=== PATIENT | female | born 1965 | race Native Hawaiian/Other Pacific Islander ===

== ENCOUNTER 2020-04-15 14:10 | Inpatient (IN) | payer OTHER ==
[~2020-04-15] VITALS: Ht 152.4 cm; Wt 126.4 kg
[~2020-04-15 14:10] MED LIST: ASA LOW DOSE81 MG PO; CETI10TA PO; INVOKANA100 MG OR; LISI20TA24 PO; METF500T PO; PANT40TA PO
[2020-04-15] MEDS ORDERED: ZITHROMAX500 MG PO (17:15)
[2020-04-15] MEDS ORDERED: PEPCID40 MG PO (17:16)
[2020-04-15] MEDS ORDERED: PREDNISONE10 M1 PO (17:17)
[2020-04-15 17:18] VITALS: BP 155/77; TEMP 99.1; Ht 152.4 cm; Wt 126.4 kg
[2020-04-15 17:24] LABS: PLATELET COUNT 237 K/uL (152-353)
[2020-04-15 17:43] LABS: POTASSIUM 4.1 mmol/L (3.6-5.2)
[2020-04-15 20:00] VITALS: BP 131/71; TEMP 98.6
[2020-04-16 00:07] VITALS: BP 133/81; TEMP 98
[2020-04-16 04:00] VITALS: BP 134/82; TEMP 97.9
[2020-04-16 08:00] VITALS: BP 136/68; TEMP 97.9
[2020-04-16 12:00] VITALS: BP 175/86; TEMP 98.2
[2020-04-16 12:05] LABS: PLATELET COUNT 205 K/uL (152-353)
[2020-04-16 12:12] LABS: POTASSIUM 3.6 mmol/L (3.6-5.2)
[2020-04-16 16:00] VITALS: BP 156/71; TEMP 97.4
[2020-04-16 20:00] VITALS: BP 146/89; TEMP 98.1
[2020-04-17] VITALS (7 sets, daily range): BP systolic 121–148; BP diastolic 61–91; TEMP 97.5–98.8
[2020-04-17 05:25] LABS: PLATELET COUNT 232 K/uL (152-353)
[2020-04-17 05:58] LABS: POTASSIUM 4.7 mmol/L (3.6-5.2)
[2020-04-18 04:00] VITALS: BP 127/71; TEMP 98.5
[2020-04-18 05:44] LABS: PLATELET COUNT 259 K/uL (152-353)
[2020-04-18 06:06] LABS: POTASSIUM 4.4 mmol/L (3.6-5.2)
[2020-04-18 08:00] VITALS: BP 155/86; TEMP 97.7
[2020-04-18 12:00] VITALS: BP 164/76; TEMP 97.8
== END 2020-04-18 14:40 | disposition home or self-care (01) | DRG 177 ==
LOC: MED/SURG 14:10
PROVIDERS: ADMIT Family Medicine
DX: U07.1 COVID-19 (principal); J18.8 Other pneumonia, unspecified organism; J44.1 Chronic obstructive pulmonary disease with (acute) exacerbation; E46 Unspecified protein-calorie malnutrition; I10 Essential (primary) hypertension; E11.9 Type 2 diabetes mellitus without complications; E86.0 Dehydration; E66.01 Morbid (severe) obesity due to excess calories; R06.09 Other forms of dyspnea; R09.02 Hypoxemia
CPT/HCPCS: 36415; 80053; 82728; 83036; 83735; 84100; 85027; 85379; 86140; 87040; 87635; 93005; 94667; 94668; 94760; J0456; J0696; J1100; J1650; J1885; U0003

== ENCOUNTER 2020-07-03 10:17 | Observation (INO) | payer OTHER ==
[2020-07-03] VITALS (12 sets, daily range): BP systolic 102–146; BP diastolic 58–84; TEMP 97.7–98; Ht 152.4 cm; Wt 126.4 kg
[~2020-07-03] VITALS: Ht 152.4 cm; Wt 126.4 kg
[~2020-07-03 10:17] MED LIST changes: +PEPCID40 MG PO; +PREDNISONE10 M1 PO; +ZITHROMAX500 MG PO
[2020-07-03] MEDS ORDERED: MELATONIN3 M2 PO (10:35)
[2020-07-03] MEDS ORDERED: SIMV20TA2 PO (10:35)
[2020-07-03] MEDS ORDERED: LISI5TAB10 PO (10:36)
[2020-07-03] MEDS ORDERED: PULMICORT180 MCG/AC INH (10:37)
[2020-07-03] MEDS ORDERED: FLONASE AL50 MCG/ACT NAS (10:37)
[2020-07-03 10:38] LABS: PLATELET COUNT 275 K/uL (152-353)
[2020-07-03] MEDS ORDERED: OZEMPIC2 MG/1.51 SC (10:38)
[2020-07-03] MEDS ORDERED: CENTRU3 PO (10:39)
[2020-07-03 10:46] LABS: POTASSIUM 3.8 mmol/L (3.6-5.2); SODIUM 140 mmol/L (136-145)
[2020-07-03 10:55] LABS: PARTIAL THROMBOPLASTIN TIME 26.4 SECONDS (24.5-33.6)
[2020-07-04] VITALS: BP 115/77; TEMP 97.9
[2020-07-04 02:30] LABS: PLATELET COUNT 251 K/uL (152-353)
[2020-07-04 02:37] LABS: POTASSIUM 4.5 mmol/L (3.6-5.2)
[2020-07-04 04:00] VITALS: BP 135/66; TEMP 97.5
[2020-07-04 08:00] VITALS: BP 126/80; TEMP 97.8
== END 2020-07-04 13:05 | disposition home or self-care (01) ==
LOC: ED 10:19 → MED/SURG 12:00
PROVIDERS: ADMIT Hospitalist; ATTEND Family Medicine
DX: R07.89 Other chest pain (principal); E11.9 Type 2 diabetes mellitus without complications; I10 Essential (primary) hypertension; E66.01 Morbid (severe) obesity due to excess calories; K76.0 Fatty (change of) liver, not elsewhere classified; J44.9 Chronic obstructive pulmonary disease, unspecified
CPT/HCPCS: 36415; 80053; 82550; 83735; 83880; 84100; 84484; 85027; 85379; 85610; 85730; 87635; 93005; 96374; 96376; 99220; 99284; G0378; J1650; J1885; J2270; J2405; U0003

== ENCOUNTER 2020-07-16 07:34 | Outpatient (CLI) | payer OTHER ==
[~2020-07-16] VITALS: Ht 152.4 cm; Wt 126.1 kg
[~2020-07-16 07:34] MED LIST changes: +CENTRU3 PO; +FLONASE AL50 MCG/ACT NAS; +LISI5TAB10 PO; +MELATONIN3 M2 PO; +OZEMPIC2 MG/1.51 SC; +PULMICORT180 MCG/AC INH; +SIMV20TA2 PO
== END 2020-07-16 21:36 | disposition home or self-care (01) ==
LOC: NM 07:34
PROVIDERS: ATTEND Family Medicine
DX: R07.9 Chest pain, unspecified (principal)
CPT/HCPCS: A9500; J2785

== ENCOUNTER 2020-11-29 10:30 | Outpatient (CLI) | payer OTHER | END 2020-11-29 22:56 | disposition home or self-care (01) | LOC: RAD 10:30 | PROVIDERS: ATTEND Nurse Practitioner Primary Care | DX: K59.09 Other constipation (principal) ==

== ENCOUNTER 2021-09-10 11:43 | Outpatient (CLI) | payer OTHER | END 2021-09-10 19:39 | disposition home or self-care (01) | LOC: RAD 11:43 | PROVIDERS: ATTEND Nurse Practitioner Primary Care | DX: M25.511 Pain in right shoulder (principal) ==

== ENCOUNTER 2021-09-17 07:12 | Outpatient (CLI) | payer OTHER ==
[2021-09-17 07:53] LABS: PLATELET COUNT 247 K/uL (152-353)
[2021-09-17 08:32] LABS: POTASSIUM 4.2 mmol/L (3.6-5.2)
== END 2021-09-17 19:00 | disposition home or self-care (01) ==
LOC: LABW 07:12
PROVIDERS: ATTEND Nurse Practitioner Family
DX: I10 Essential (primary) hypertension (principal); E78.2 Mixed hyperlipidemia; E55.9 Vitamin D deficiency, unspecified; R53.83 Other fatigue
CPT/HCPCS: 36415; 80053; 80061; 81000; 82306; 82607; 84443; 85027

== ENCOUNTER 2021-10-17 13:48 | Outpatient (CLI) | payer OTHER | END 2021-10-17 21:02 | disposition home or self-care (01) | LOC: MAMMO 13:48 | PROVIDERS: ATTEND Nurse Practitioner Primary Care | DX: Z12.31 Encounter for screening mammogram for malignant neoplasm of breast (principal) ==

== ENCOUNTER 2023-02-15 12:09 | Observation (INO) | payer OTHER ==
[~2023-02-15] VITALS: Ht 152.4 cm; Wt 99.0 kg
[2023-02-15 12:13] VITALS: BP 152/59; TEMP 98.3
[2023-02-15 12:40] LABS: PLATELET COUNT 233 K/uL (152-353)
[2023-02-15 12:42] LABS: POTASSIUM 3.7 mmol/L (3.6-5.2)
[2023-02-15 15:00] VITALS: BP 142/62; TEMP 97.8; Ht 152.4 cm; Wt 99.0 kg
[2023-02-15] MEDS ORDERED: METO-837 PO (15:52)
[2023-02-15] MEDS ORDERED: METF500T PO (16:10)
[2023-02-15] MEDS ORDERED: BAYER ASA325 MG PO (16:10)
[2023-02-15] MEDS ORDERED: SENNA LAX8.6 MG PO (16:11)
[2023-02-15 16:25] VITALS: BP 142/62; TEMP 97.8
[2023-02-15 17:28] LABS: PARTIAL THROMBOPLASTIN TIME 33.7 SECONDS (23.9-36.7)
[2023-02-15 20:00] VITALS: BP 126/65; TEMP 97.8
[2023-02-15 23:51] VITALS: BP 101/46; TEMP 98.3
[2023-02-16 03:59] VITALS: BP 132/79; TEMP 98
[2023-02-16 08:00] VITALS: BP 124/66; TEMP 97.8
[2023-02-16] MEDS ORDERED: PANTOPRAZOLE 40MG TA PO (08:18)
[2023-02-16] MEDS ORDERED: LISI5TAB10 PO (08:26)
== END 2023-02-16 09:45 | disposition home or self-care (01) ==
LOC: ED 12:09 → MED/SURG 13:18
PROVIDERS: Family Medicine; ADMIT Internal Medicine; ATTEND Internal Medicine
DX: R07.89 Other chest pain (principal); E11.9 Type 2 diabetes mellitus without complications; J44.9 Chronic obstructive pulmonary disease, unspecified; K21.9 Gastro-esophageal reflux disease without esophagitis; F17.210 Nicotine dependence, cigarettes, uncomplicated; Z86.718 Personal history of other venous thrombosis and embolism; R42 Dizziness and giddiness
CPT/HCPCS: 36415; 80053; 82948; 84443; 84484; 85027; 85610; 85730; 93005; 96361; 96372; 99221; 99284; G0378; J1650